=== PATIENT | male | born 1990 | race Caucasian/White ===

== ENCOUNTER 2021-09-16 11:13 | Emergency (ER) | payer OTHER, SELFPAY ==
--- NOTE | ~2021-09-16 | XR_ITS ---
EXAMINATION: [id number] DATE: 09/16/2021 12:10 INDICATION: Throat foreign body. TECHNIQUE: 2 views of cervical spine were obtained. COMPARISON: None. FINDINGS: The adenoids, palatine tonsils, epiglottis, prevertebral soft tissues, and airway are lasha l. No radiopaque foreign body. The cervical spine is unremarkable. IMPRESSION: 1. No radiopaque foreign body. Reviewed, dictated and finalized at location B.
[2021-09-16 11:22] VITALS: BP 125/92; PULSE 100; RESP 20; TEMP 37.4; O2SAT 100
--- NOTE | 2021-09-16 11:29 | ED.URI ---
HPI - URI/Sore Throat General Chief Complaint: Unspecified Stated Complaint: HAS COVID - Time Seen by Provider: 09/16/21 11:47 Source: patient and RN notes reviewed Mode of arrival: ambulatory Limitations: no limitations History of Present Illness HPI Narrative: 30-year-old male presents to concern for a Low lodged in his esophagus. Reports he tested positive for COVID on Thursday and was prescribed Paxlovid. Reports he took the capsule last night and felt like it was stuck in his esophagus. Reports he is able to sip water but is not able to eat food. Reports he took a bite of food today and had to spit it back up because it would not pass. Reports the nurse following him for COVID told him to come to urgent care. MD elicited complaint: other (Foreign body in the throat) Related Data Home Medications Medication Instructions Recorded Confirmed baclofen 10 mg PO BID 09/16/21 09/16/21 ibuprofen 400 mg PO Q6H PRN 09/16/21 09/16/21 nirmatrelvir-ritonavir [Paxlovid 0 tablet PO PER PKG DIR 09/16/21 09/16/21 (EUA)] tramadol 50 mg PO Q6H PRN 09/16/21 09/16/21 Allergies Allergy/AdvReac Type Severity Reaction Status Date / Time No Known Allergies Allergy Verified 09/16/21 11:39 Review of Systems Review of Systems: CONSTITUTIONAL: Denies malaise, chills, sweats, or fever. ENT: Reports pain with swallowing, feeling of object lodged in his esophagus CARDIOVASCULAR: Reports midsternal chest pain when swallowing, denies palpitations or edema. RESPIRATORY: Denies cough. Denies dyspnea. GASTROINTESTINAL: Denies abdominal pain, nausea, vomiting, diarrhea All systems reviewed & are unremarkable except as noted in HPI and below PMFSH Comments At time of signature, agree with nursing past medical, surgical, social and family history. There is no relevant family history pertinent to the presenting complaint Exam Narrative: GENERAL: Nontoxic-appearing and in no acute distress. HEAD: Normocephalic EYES: PERRLA, conjunctivae clear ENT: Nares clear. Mucous membranes moist. Oropharynx not erythematous without lesions, no foreign body visible. Tonsils not enlarged and without exudate, no drooling, no hoarseness, no trismus, uvula midline. NECK: Supple. No lymphadenopathy CHEST: Clear to auscultation, breath sounds equal. No wheezing, rhonchi, rales, or stridor. No respiratory distress, speaks in full sentences. HEART: Regular rate and rhythm. No murmur heard. SKIN: Warm, dry, no rash. NEURO: Alert and oriented x3. PSYCH: Normal mood and affect Course Course Emergency Course: IV placed, 0.5 mg IV glucagon slow push, 1 L of lactated Ringer's given. Patient reports symptoms slightly improved, he is able to swallow water. Anticipatory guidance given. Patient is aware of diagnosis, understands and agrees to treatment plan. Anticipatory guidance given. Patient agrees to follow-up as directed and is aware of reasons to seek care at the emergency department. Portions of this record may have been created with voice recognition software Level of Care: Express Care Visit Vital Signs Vital signs: Vital Signs Temperature 99.3 F 09/16/21 11:22 Pulse Rate 100 09/16/21 11:22 Respiratory Rate 20 09/16/21 11:22 Blood Pressure 125/92 H 09/16/21 11:22 Pulse Oximetry 100 09/16/21 11:22 Temperature 99.3 F 09/16/21 11:22 Pulse Rate 100 09/16/21 11:22 Respiratory Rate 20 09/16/21 11:22 Blood Pressure 125/92 H 09/16/21 11:22 Pulse Oximetry 100 09/16/21 11:22 Reviewed. MDM - URI/Sore Throat MDM Narrative Medical decision making narrative: Exam findings and imaging show no acute concerns or changes; patient is non-toxic appearing and is in no distress. Patient is appropriate for outpatient treatment and follow-up. Lab Data Attestation: I reviewed the patient's lab results. Imaging Data My impression: Images reviewed, interpreted by radiologist, agree, see report. Radiologist's impression: EXAMINATION: [id number] D
[2021-09-16] MEDS: LACTATED RINGERS 1,000 ML 999 ML IV CONT (12:40)
[2021-09-16] MEDS: GLUCAGON FOR INJ 1 MG VIAL 0.5 MG IV PUSH (12:45)
== END 2021-09-16 13:45 | disposition home or self-care (01) ==
PROVIDERS: Emergency Provider Nurse Practitioner; PCP Family Medicine
DX: R13.10 Dysphagia, unspecified (principal)
CPT/HCPCS: 72040; 96365; 96374; 99214; G0463; J1610; J7120